=== PATIENT | female | born 1965 | race Caucasian/White ===

== ENCOUNTER 2018-01-17 16:35 | Emergency (ER) | payer SELFPAY ==
[~2018-01-17] VITALS: Ht 175.3 cm; Wt 72.6 kg
[~2018-01-17 16:35] MED LIST: CLONAZEPAM0.5 M1 PO; HYDROGESIC 5-51 EACH PO; LANTUS100 UNITS/; Z.0.LANTUS 3ML100 UN
--- OUTSIDE RECORDS SUMMARY | 2018-01-17 16:38 | XMS REPORT | Clinical Summary ---
Author Author [facility] Organization [facility] Address Unknown Phone Unavailable Care Team Providers Care Engineering Writer Name Role Phone Luc Redd MD PCP Allergies Active Allergy Reactions Severity Noted Date Comments Lisinopril 01/22/2013 Modafinil 01/22/2013 Current Medications Prescription Sig. Disp. Refills Start End Date Status Date ferrous sulfate 325 mg Take 1 tablet by mouth 2 60 tablet 0 06/14/19 Active (65 mg iron) times daily. 16 tabletIndications: Dysfunctional uterine bleeding ferrous sulfate 325 mg Take 1 tablet by mouth 2 60 tablet 2 07/22/19 Active (65 mg iron) times daily. 16 tabletIndications: S/P hysterectomy ibuprofen (MOTRIN) 600 mg Take 1 tablet by mouth 30 tablet 1 07/22/19 Active tabletIndications: S/P every 6 hours as needed 16 hysterectomy for Pain. INSULIN SYRINGE 1mL Use to inject medication 30 Each 11 12/03/19 Active 30GX5/16" daily. Use a new syringe 16 syringe-needleIndications each time. : Type 2 diabetes mellitus with hyperglycemia, unspecified termination clerk insulin use status traMADol (ULTRAM) 50 mg Take 1 tablet by mouth 30 tablet 1 02/03/20 Active tabletIndications: every 6 hours as needed 16 Chronic hepatitis C for Pain. without hepatic coma, Sciatica of right side hydroCHLOROthiazide Take 2 tablets by mouth 180 tablet 1 11/16/19 Active (HYDRODIURIL) 25 mg daily. 17 tabletIndications: Essential hypertension traMADol (ULTRAM) 50 mg Take 1 tablet by mouth 30 tablet 0 11/16/19 Active tabletIndications: every 6 hours as needed 17 Myalgia for Pain. metoprolol tartrate Take 1 tablet by mouth 2 60 tablet 3 11/18/19 Active (LOPRESSOR) 50 mg tablet times daily. 17 insulin detemir (LEVEMIR) Inject 55 Units under the 50 mL 1 01/26/20 Active 100 unit/mL skin daily. 17 injectionIndications: Type 2 diabetes mellitus without complication, with long-term current use of insulin traZODone (DESYREL) 100 Take 1 tablet by mouth at 30 tablet 2 01/04/20 Active mg tabletIndications: bedtime nightly. 18 Insomnia, unspecified type clonazePAM (KLONOPIN) 0.5 Take 1 tablet by mouth 30 tablet 2 01/04/20 Active mg tabletIndications: daily as needed for 18 Anxiety Anxiety. lithium carbonate Take 1 capsule by mouth 2 60 capsule 2 01/04/20 Active (ESKALITH) 600 mg times daily (with meals). 18 capsuleIndications: Bipolar 2 disorder, Anxiety insulin detemir (LEVEMIR) Inject 55 Units under the 50 mL 0 10/26/19 01/24/20 Discontin 100 unit/mL skin daily. 17 17 ued injectionIndications: Type 2 diabetes mellitus without complication, with long-term current use of insulin traZODone (DESYREL) 100 Take 1 tablet by mouth at 30 tablet 3 12/03/19 02/23/20 Discontin mg tabletIndications: bedtime nightly. 17 17 ued Bipolar 2 disorder lithium carbonate Take 1 capsule by mouth 2 60 capsule 2 12/29/19 07/27/19 Discontin (ESKALITH) 600 mg times daily (with meals). 17 18 ued capsuleIndications: Bipolar 2 disorder, Anxiety clonazePAM (KLONOPIN) 0.5 Take 1 tablet by mouth 30 tablet 2 12/29/19 07/27/19 Discontin mg tabletIndications: daily as needed for 17 18 ued Anxiety Anxiety. insulin detemir (LEVEMIR) Inject 55 Units under the 50 mL 1 01/25/20 01/26/20 Discontin 100 unit/mL skin daily. 17 17 ued injectionIndications: Type 2 diabetes mellitus without complication, with long-term current use of insulin gabapentin (NEURONTIN) Take 1 capsule by mouth 30 capsule 0 01/26/20 10/19/19 Discontin 100 mg capsule at bedtime nightly For 17 18 ued hot flashes and mood changes until you see Dr. Troy.. tropicamide (MYDRIACYL) Instill 1 Drop in each 15 mL 0 01/26/20 01/26/20 0.5 % ophthalmic solution eye once as needed for up 17 17 to 1 dose (for poor retina scan image). traZODone (DESYREL) 100 Take 1 tablet by mouth at 30 tablet 2 02/23/20 02/23/20 Discontin mg tabletIndications: bedtime nightly. 17 17 ued Insomnia, unspecified type QUEtiapine (SEROQUEL) 50 Take 1/2 or a whole at 30 tablet 1 02/23/20 02/23/20 Discontin mg tabletIndications: bedtime.. 17 17 ued Bipolar 2 disorder, Anxiety, Insomnia, unspecified type traZODone (DESYREL) 100 Take 1 tablet by mouth at 30 tablet 2 02/23/20 06/02/19 Discontin mg tabletIndications: bedtime nightly. 17 18 ued Insomnia, unspecified type QUEtiapine (SEROQUEL) 50 Take 1/2 or a whole at 30 tablet 1 02/23/20 07/27/19 Discontin mg tabletIndications: bedtime.. 17 18 ued Bipolar 2 disorder, Anxiety, Insomnia, unspecified type traZODone (DESYREL) 100 Take 1 tablet by mouth at 30 tablet 2 06/03/19 07/27/19 Discontin mg tabletIndications: bedtime nightly. 18 18 ued Insomnia, unspecified type traZODone (DESYREL) 100 Take 1 tablet by mouth at 30 tablet 2 07/27/19 10/19/19 Discontin mg tabletIndications: bedtime nightly. 18 18 ued Insomnia, unspecified type clonazePAM (KLONOPIN) 0.5 Take 1 tablet by mouth 30 tablet 2 07/27/19 10/19/19 Discontin mg tabletIndications: daily as needed for 18 18 ued Anxiety Anxiety. lithium carbonate Take 1 capsule by mouth 2 60 capsule 2 07/27/19 10/19/19 Discontin (ESKALITH) 600 mg times daily (with meals). 18 18 ued capsuleIndications: Bipolar 2 disorder, Anxiety traZODone (DESYREL) 100 Take 1 tablet by mouth at 30 tablet 2 10/19/19 01/04/20 Discontin mg tabletIndications: bedtime nightly. 18 18 ued Insomnia, unspecified type clonazePAM (KLONOPIN) 0.5 Take 1 tablet by mouth 30 tablet 2 10/19/19 01/04/20 Discontin mg tabletIndications: daily as needed for 18 18 ued Anxiety Anxiety. lithium carbonate Take 1 capsule by mouth 2 60 capsule 2 10/19/19 01/04/20 Discontin (ESKALITH) 600 mg times daily (with meals). 18 18 ued capsuleIndications: Bipolar 2 disorder, Anxiety Active Problems Problem Noted Date Perimenopausal - hot flashes and mood swings 01/25/2017 Larned use 01/25/2017 S/P hysterectomy 07/21/2015 Epigastric pain 07/06/2015 Vagina bleeding 07/05/2015 Dysfunctional uterine bleeding 06/13/2015 Abnormal ultrasound of kidney- repeat CT- Punctate bilateral nonobstructing 01/02/2015 renal calculi.- has appt with pcp jan 2015-letter 2 sent Elevated LFTs 12/03/2014 Elevated TSH 12/03/2014 Hepatitis C virus infection-Hepatitis C- treated 2002-06; 2007-11 - at 12/03/2014 [facility] ; had hep A and B vaccines ; low platelets ; elevated AFP DM (diabetes mellitus), type 2, uncontrolled 12/03/2014 Hepatitis C- treated 2002-06; 2007-11 - at [facility] ; had hep A and B vaccines 11/19/2014 ; low platelets ; History of alcohol abuse- in remission since 201211/19/2014 Anxiety state, unspecified 09/04/2014 Bipolar 2 disorder 11/06/2013 DM (diabetes mellitus); not on lalo - allergy ?; 01/23/2013 Depression 01/22/2013 Anxiety 01/22/2013 Uterine leiomyoma Hypertension Encounters Date Type Specialty Care Team Description 01/03/2018 Office Visit Psychiatry Sophy Troy MD Insomnia, unspecified type; Anxiety; Bipolar 2 disorder 10/18/2017 Office Visit Psychiatry Sophy Troy MD Insomnia, unspecified type; Anxiety; Bipolar 2 disorder 07/26/2017 Office Visit Psychiatry Luc Redd MD Insomnia, unspecified Sophy Troy MD type; Anxiety; Bipolar 2 disorder 06/13/2017 Pharmacy Visit 06/13/2017 Pharmacy Visit 06/02/2017 Pharmacy Visit 06/01/2017 Refill Family Practice Mary Cuadra RN Insomnia, unspecified type 02/22/2017 Office Visit Psychiatry Sophy Troy MD Insomnia, unspecified type (Primary Dx); Bipolar 2 disorder; Anxiety 02/22/2017 Pharmacy Visit 01/30/2017 Pharmacy Visit 01/30/2017 Pharmacy Visit 01/26/2017 Pharmacy Visit 01/25/2017 Office Visit Family Practice Nicole La NP 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 Hannon MD chronic hepatitis C infection (Primary Dx); Screen for colon cancer; Type 2 diabetes mellitus without complication, with long-term current use of insulin; Encounter for screening mammogram for malignant neoplasm of breast; Cramping affecting , antepartum; Leg cramp 01/25/2017 Pharmacy Visit 01/24/2017 Pharmacy Visit 01/23/2017 Refill Family Practice Luc Redd MD Type 2 diabetes mellitus without complication, with long-term current use of insulin after 01/16/2017 Immunizations Name Dates Previously Given Next Due PNEUMOCOCCAL 23-VALPS 11/15/2016 (Deferred: Patient Refused) VACCINE 25 MCG/0.5 ML INJECTION Tdap Tetanus, diphtheria, 11/15/2016 (Deferred: Patient Refused) acellular pertussis Vaccine Social History Tobacco Use Types Packs/Day Years Used Date Current Every Day Smoker Cigarettes 0.25 20 Smokeless Tobacco: Never Used Tobacco Cessation: Ready to Quit: No; Counseling Given: Yes Alcohol Use Drinks/Week oz/Week Comments No history of alcohol abuse Sex Assigned at Date Recorded Not on file Last Filed Vital Signs Vital Sign Reading Time Taken Blood Pressure 134/81 01/03/2018 3:05 PM CDT Pulse 62 01/03/2018 3:05 PM CDT Temperature 36.8 C (98.2 F) 01/03/2018 3:05 PM CDT Respiratory Rate 18 01/03/2018 3:05 PM CDT Oxygen Saturation - - Inhaled Oxygen - - Concentration Weight 76.2 kg (168 lb) 01/03/2018 3:05 PM CDT Height 170.2 cm (5' 7") 01/03/2018 3:05 PM CDT Body Mass Index 26.31 01/03/2018 3:05 PM CDT Plan of Treatment Date Type Specialty Care Team Description 03/07/2018 Office Visit Psychiatry Sophy Troy MD [facility] [address] [place] [address] Health Maintenance Due Date Last Done Comments Colorectal Cancer Scrn 02/19/2016 Annual (FIT/FOBT) Age 50 to 75 DM Retinal Exam (Yearly) 10/16/2016 10/17/2015 (Previously completed - External), 10/25/2014 Breast Cancer Scrn 02/02/2017 02/03/2016, 12/03/2014, 12/03/2014 (Yearly) DM Foot Exam (Yearly) 11/15/2017 11/15/2016, 06/15/2016, 11/19/2014, Additional history exists DM HGBA1C (Yearly) 12/12/2017 12/12/2016, 06/15/2016, 11/17/2015, Additional history exists DM Microalbumin Urine 12/12/2017 12/12/2016, 11/17/2015, 07/05/2015, Scrn (Yearly) Additional history exists Goals Patient Goal Type Goal Recent Progress Patient-Stat Author ed? Lifestyle Eat Healthy Molly Alfonso Results Not on fileafter 01/16/2017
--- OUTSIDE RECORDS SUMMARY | 2018-01-17 16:39 | XMS REPORT | Summary of Care ---
Author Author [facility] Organization [facility] Address Unknown Phone Unavailable Encounter [facility](HENRY) [id number] Date(s): 06/04/15 - 06/04/15 [facility] [id number] [place] [address]- Discharge Diagnosis: Abnormal uterine and vaginal bleeding, unspecified Discharge Disposition: Home Attending Physician: Abbe Sheth MD Vital Signs 1 2 3 Most recent to oldest [Reference Range]: 167.64 cm (06/04/15 7:02 AM) Height 97.6 DegF (06/04/15 2:55 PM) 98.8 DegF (06/04/15 7:02 AM) Temperature Oral [96.4-99.1 DegF] 126/73 mmHg (06/04/15 2:55 PM) 118/71 mmHg (06/04/15 12:58 PM) 150/80 mmHg *HI* (06/04/15 7:02 AM) Blood Pressure [90-140/60-90 mmHg] 20 BRMIN (06/04/15 2:55 PM) 20 BRMIN (06/04/15 12:58 PM) 16 BRMIN (06/04/15 7:02 AM) Respiratory Rate [14-20 BRMIN] 67 bpm (06/04/15 2:55 PM) 75 bpm (06/04/15 12:58 PM) 74 bpm (06/04/15 7:02 AM) Peripheral Pulse Rate [60-100 bpm] 76.818 kg (06/04/15 7:02 AM) Weight 27.33 m2 (06/04/15 7:02 AM) Body Mass Index Problem List Condition Effective Dates Status Health Status Informant Acute hepatitis Resolved C(Confirmed) DM (diabetes Resolved mellitus)(Confirmed) Suicidal(Confirmed) Resolved Allergies, Adverse Reactions, Alerts Substance Reaction Severity Status lisinopril1 Active Provigil Active 1swelling of both lower extremities Medications Dilaudid 0.5 mg, Route: IV, ONCE, Dosing Weight 76.818, kg, Start date: 06/04/15 11:55:00 , Stop date: 06/04/15 11:55:00 Start Date: 06/04/15 Stop Date: 06/04/15 Status: Completed morphine Sulfate 4 mg, 2 mL, Route: IVP, Drug form: INJ, ONCE, Dosing Weight 76.818, kg, Priority : STAT, Start date: 06/04/15 8:12:00, Stop date: 06/04/15 8:12:00 Notes: (Same as:MORPhine Sulfate) Start Date: 06/04/15 Stop Date: 06/04/15 Status: Completed NS (Bolus) IV 1,000 mL, 1,000 ml/hr, Infuse Over: 1 hr, Route: IV, ONCE, Priority: STAT, Dosin g Weight 76.818 kg, Start date: 06/04/15 12:49:00, Duration: 1 doses or times, S top date: 06/04/15 12:49:00 Start Date: 06/04/15 Stop Date: 06/04/15 Status: Completed Ultram 50 mg oral tablet 50 mg=1 tab, PO, Q4H, PRN pain, X 5 day, # 30 tab, 0 Refill(s) Start Date: 06/04/15 Stop Date: 06/09/15 Status: Ordered Zofran ODT 4 mg oral tablet, disintegrating 4 mg=1 tab, PO, BID, PRN Nausea and Vomiting, Dissolve tab under tongue, X 3 day , # 10 tab, 0 Refill(s) Start Date: 06/04/15 Stop Date: 06/07/15 Status: Ordered Results ELECTROLYTES Most recent to 1 oldest [Reference Range]: Sodium Lvl [135-145 138 mEq/L mEq/L] (06/04/15 7:44 AM) Potassium Lvl 3.6 mEq/L [3.5-5.1 mEq/L] (06/04/15 7:44 AM) Chloride Lvl [95-109 104 mEq/L mEq/L] (06/04/15 7:44 AM) CO2 [24-32 mEq/L] 26 mEq/L (06/04/15 7:44 AM) AGAP [10.0-20.0 11.6 mEq/L mEq/L] (06/04/15 7:44 AM) CHEM PANEL Most recent to 1 oldest [Reference Range]: Creatinine Lvl 0.78 mg/dL [0.50-1.40 mg/dL] (06/04/15 7:44 AM) eGFR 90 mL/min/1.73m2 1 *NA* (06/04/15 7:44 AM) BUN [7-22 mg/dL] 12 mg/dL (06/04/15 7:44 AM) B/C Ratio [6-25] 15 (06/04/15 7:44 AM) Glucose Lvl [70-99 124 mg/dL mg/dL] *HI* (06/04/15 7:44 AM) Total Protein 7.4 g/dL [6.4-8.4 g/dL] (06/04/15 7:44 AM) Albumin Lvl [3.5-5.0 3.3 g/dL g/dL] *LOW* (06/04/15 7:44 AM) Globulin [2.0-4.0 4.1 g/dL g/dL] *HI* (06/04/15 7:44 AM) A/G Ratio [0.7-1.6] 0.8 (06/04/15 7:44 AM) Calcium Lvl 7.9 mg/dL [8.5-10.5 mg/dL] *LOW* (06/04/15 7:44 AM) ALT [0-65 unit/L] 101 unit/L *HI* (06/04/15 7:44 AM) AST [0-37 unit/L] 91 unit/L *HI* (06/04/15 7:44 AM) Alk Phos [39-136 67 unit/L unit/L] (06/04/15 7:44 AM) Bili Total [0.2-1.3 0.3 mg/dL mg/dL] (06/04/15 7:44 AM) 1Result Comment: The eGFR is calculated using the CKD-EPI formula. In most young, healthy individuals the eGFR will be >90 mL/min/1.73m2. The eGFR declines with age. An eGFR of 60-89 may be normal in some populations, particularly the elderly, for whom the CKD-EPI formula has not been extensively validated. Use of the eGFR is not recommended in the following populations: Individuals with unstable creatinine concentrations, including patients and those with serious co-morbid conditions. Patients with extremes in muscle mass or diet. The data above are obtained from the National Kidney Disease Education Program ( NKDEP) which additionally recommends that when the eGFR is used in patients with extremes of body mass index for purposes of drug dosing, the eGFR should be mul tiplied by the estimated BMI. ENDOCRINOLOGY Most recent to 1 oldest [Reference Range]: hCG Tot <1 mIU/mL *NA* (06/04/15 7:44 AM) URINE AND STOOL Most recent to 1 oldest [Reference Range]: UA Turbidity [Clear] Cloudy *ABN* (06/04/15 8:44 AM) UA Color [Yellow] Red *ABN* (06/04/15 8:44 AM) UA pH [5.0-8.0] 6.0 (06/04/15 8:44 AM) UA Spec Grav 1.020 [<=1.030] (06/04/15 8:44 AM) UA Glucose Negative [Negative] (06/04/15 8:44 AM) UA Blood [Negative] Large *ABN* (06/04/15 8:44 AM) UA Ketones Negative [Negative] *NA* (06/04/15 8:44 AM) UA Protein [Negative 100 mg/dL mg/dL] *ABN* (06/04/15 8:44 AM) UA Urobilinogen 1.0 EU/dL [0.1-1.0 EU/dL] (06/04/15 8:44 AM) UA Bili [Negative] Small *ABN* (06/04/15 8:44 AM) UA Leuk Est Negative [Negative] (06/04/15 8:44 AM) UA Nitrite Negative [Negative] (06/04/15 8:44 AM) UA WBC [0-5 /HPF] 0-2 /HPF (06/04/15 8:44 AM) UA RBC [0-2 /HPF] >100 /HPF *ABN* (06/04/15 8:44 AM) UA Bacteria [None Occasional /HPF Seen /HPF] (06/04/15 8:44 AM) UA Sq Epi [Few /LPF] Occasional /LPF (06/04/15 8:44 AM) HEMATOLOGY Most recent to 1 oldest [Reference Range]: WBC [3.7-10.4 K/CMM] 4.9 K/CMM (06/04/15 7:44 AM) RBC [4.20-5.40 3.73 M/CMM M/CMM] *LOW* (06/04/15 7:44 AM) Hgb [12.0-16.0 g/dL] 10.8 g/dL *LOW* (06/04/15 7:44 AM) Hct [36.0-48.0 %] 32.5 % *LOW* (06/04/15 7:44 AM) MCV [80.0-98.0 fL] 86.9 fL (06/04/15 7:44 AM) MCH [27.0-31.0 pg] 28.8 pg (06/04/15 7:44 AM) MCHC [32.0-36.0 33.1 g/dL g/dL] (06/04/15 7:44 AM) RDW [11.5-14.5 %] 14.1 % (06/04/15 7:44 AM) Platelet [133-450 96 K/CMM K/CMM] *LOW* (06/04/15 7:44 AM) MPV [7.4-10.4 fL] 7.9 fL (06/04/15 7:44 AM) Segs [45.0-75.0 %] 55.4 % (06/04/15 7:44 AM) Lymphocytes 33.1 % [20.0-40.0 %] (06/04/15 7:44 AM) Monocytes [2.0-12.0 8.6 % %] (06/04/15 7:44 AM) Eosinophils [0.0-4.0 2.0 % %] (06/04/15 7:44 AM) Basophils [0.0-1.0 0.9 % %] (06/04/15 7:44 AM) Segs-Bands # 2.7 K/CMM [1.5-8.1 K/CMM] (06/04/15 7:44 AM) Lymphocytes # 1.6 K/CMM [1.0-5.5 K/CMM] (06/04/15 7:44 AM) Monocytes # [0.0-0.8 0.4 K/CMM K/CMM] (06/04/15 7:44 AM) Eosinophils # 0.1 K/CMM [0.0-0.5 K/CMM] (06/04/15 7:44 AM) PT [12.0-14.7 14.2 seconds seconds] (06/04/15 7:44 AM) INR [0.85-1.17] 1.07 (06/04/15 7:44 AM) PTT [22.9-35.8 27.4 seconds seconds] (06/04/15 7:44 AM) Immunizations No data available for this section Procedures No data available for this section Social History Social History Type Response Smoking Status Current every day smoker; Type: Cigarettes; Exposure to Tobacco Smoke None; Cigarette Smoking Last 365 Days Yes; Reg Smoking Cessation Counseling No Assessment and Plan No data available for this section
--- OUTSIDE RECORDS SUMMARY | 2018-01-17 16:39 | XMS REPORT | Clinical Summary ---
Author Author [facility] Organization [facility] Address Unknown Phone Unavailable Care Team Providers Care Interior Specialist Name Role Phone Luc Redd MD PCP [...] Type 2 diabetes mellitus with hyperglycemia, unspecified land conservation specialist insulin use status traMADol (ULTRAM) 50 mg [...] (LOPRESSOR) 50 mg tablet times daily. 17 gabapentin (NEURONTIN) Take 1 capsule by mouth 30 capsule 0 01/26/20 Active 100 mg capsule at bedtime nightly For 17 hot flashes and mood changes until you see Dr. Troy.. insulin detemir (LEVEMIR) Inject 55 Units under the 50 mL 1 01/26/20 Active 100 unit/mL skin daily. 17 injectionIndications: Type 2 diabetes mellitus without complication, with long-term current use of insulin traZODone (DESYREL) 100 Take 1 tablet by mouth at 30 tablet 2 07/27/19 Active mg tabletIndications: bedtime nightly. 18 Insomnia, unspecified type clonazePAM (KLONOPIN) 0.5 Take 1 tablet by mouth 30 tablet 2 07/27/19 Active mg tabletIndications: daily as needed for 18 Anxiety Anxiety. lithium carbonate Take 1 capsule by mouth 2 60 capsule 2 07/27/19 Active (ESKALITH) 600 mg times daily (with meals). 18 capsuleIndications: Bipolar 2 disorder, Anxiety insulin detemir (LEVEMIR) Inject 55 Units under the 50 mL 2 11/17/19 10/25/19 Discontin 100 unit/mL skin daily. 16 17 ued injectionIndications: Type 2 diabetes mellitus without complication, with long-term current use of insulin atenolol (TENORMIN) 50 mg Take 1 tablet by mouth 2 180 tablet 1 06/16/19 11/06/19 Discontin tabletIndications: times daily. 17 17 ued Essential hypertension hydroCHLOROthiazide Take 2 tablets by mouth 180 tablet 1 06/16/19 11/16/19 Discontin (HYDRODIURIL) 25 mg daily. 17 17 ued tabletIndications: Essential hypertension insulin REGULAR (NOVOLIN Use for sliding scale 150 20 mL 0 08/02/19 11/02/19 R, HUMULIN R) 100 unit/mL to 200=2 units under the 17 17 injectionIndications: skin; 201 to 250=4 units Type 2 diabetes mellitus and 251 - 300=6 units 301 without complication, - 350=8 units three times with long-term current a day as needed use of insulin clonazePAM (KLONOPIN) 0.5 Take 1 tablet by mouth 30 tablet 2 08/17/19 10/27/19 Discontin mg tabletIndications: daily as needed for 17 17 ued Anxiety Anxiety. traZODone (DESYREL) 100 Take 1 tablet by mouth at 30 tablet 2 08/17/19 10/27/19 Discontin mg tabletIndications: bedtime nightly. 17 17 ued Bipolar 2 disorder lithium carbonate Take 1 capsule by mouth 2 60 capsule 2 08/17/19 10/27/19 Discontin (ESKALITH) 600 mg times daily (with meals). 17 17 ued capsuleIndications: Bipolar 2 disorder, Anxiety insulin detemir (LEVEMIR) Inject 55 Units under the 50 mL 0 10/26/19 01/24/20 Discontin 100 unit/mL skin daily. 17 17 ued injectionIndications: Type 2 diabetes mellitus without complication, with long-term current use of insulin traZODone (DESYREL) 100 Take 1 tablet by mouth at 30 tablet 2 10/27/19 12/01/19 Discontin mg tabletIndications: bedtime nightly. 17 17 ued Bipolar 2 disorder lithium carbonate Take 1 capsule by mouth 2 60 capsule 2 10/27/19 12/29/19 Discontin (ESKALITH) 600 mg times daily (with meals). 17 17 ued capsuleIndications: Bipolar 2 disorder, Anxiety clonazePAM (KLONOPIN) 0.5 Take 1 tablet by mouth 30 tablet 2 10/27/19 12/29/19 Discontin mg tabletIndications: daily as needed for 17 17 ued Anxiety Anxiety. atenolol (TENORMIN) 50 mg TAKE ONE TABLET BY MOUTH 180 tablet 1 11/09/19 11/16/19 Discontin tabletIndications: TWICE DAILY 17 17 ued Essential hypertension tropicamide (MYDRIACYL) Instill 1 Drop in each 15 mL 0 11/16/19 11/16/19 0.5 % ophthalmic eye once as needed for up 17 17 solutionIndications: to 1 dose (for poor Uncontrolled type 2 retina scan image). diabetes mellitus with complication, with long-term current use of insulin atenolol (TENORMIN) 50 mg Take 1 tablet by mouth 2 180 tablet 1 11/16/19 11/18/19 Discontin tabletIndications: times daily. 17 17 ued Essential hypertension traZODone (DESYREL) 100 Take 1 tablet by [...] complication, with long-term current use of insulin tropicamide (MYDRIACYL) Instill 1 Drop in each [...] nightly. 18 18 ued Insomnia, unspecified type Active Problems Problem Noted Date Perimenopausal - hot flashes and mood swings 01/25/2017 [place] use 01/25/2017 S/P hysterectomy 07/21/2015 Epigastric pain 07/06/2015 Vagina bleeding 07/05/2015 Dysfunctional uterine bleeding 06/13/2015 Abnormal ultrasound of kidney- repeat CT- Punctate bilateral nonobstructing 01/02/2015 renal calculi.- has appt with pcp jan 2015-letter 2 sent Elevated LFTs 12/03/2014 Elevated TSH 12/03/2014 Hepatitis C virus infection-Hepatitis C- treated 2002-; 2007-11 - at 12/03/2014 [facility] ; had hep A and B vaccines ; low platelets ; elevated AFP DM (diabetes mellitus), type 2, uncontrolled 12/03/2014 Hepatitis C- treated 2002-; 2007-11 - at [facility] ; had hep A and B vaccines 11/19/2014 ; low platelets ; History of alcohol abuse- in remission since 201211/19/2014 Anxiety state, unspecified 09/04/2014 Bipolar 2 disorder 11/06/2013 DM (diabetes mellitus); not on lalo - allergy ?; 01/23/2013 Depression 01/22/2013 Anxiety 01/22/2013 Uterine leiomyoma Hypertension Encounters Date Type Specialty Care Team Description 10/18/2017 Office Visit Psychiatry Sophy Tory MD Arrived 07/26/2017 Office Visit Psychiatry Luc Redd III, MD Insomnia, unspecified Sophy Troy MD type; Anxiety; Bipolar 2 disorder 06/13/2017 Pharmacy Visit 06/13/2017 Pharmacy Visit 06/02/2017 Pharmacy Visit 06/01/2017 Refill [facility] Mary Cuadra RN Insomnia, unspecified type [...] Visit 01/23/2017 Refill Family Practice Luc Redd III, MD Type 2 diabetes mellitus without complication, with long-term current use of insulin 12/29/2016 Telephone [facility] Mary Cuadra RN Medication Follow Up 12/29/2016 Telephone [facility] Mary Cuadra RN Medication Follow Up 12/28/2016 Office Visit Psychiatry Sophy Troy MD Bipolar 2 disorder; Anxiety 12/01/2016 Pharmacy Visit 11/30/2016 Refill [facility] Leonarda Kessler LVN Bipolar 2 disorder 11/30/2016 Pharmacy Visit 11/16/2016 Orders Only [facility] Luc Redd III, MD Essential hypertension 11/15/2016 Office Visit [facility] Nicole La NP Uncontrolled type 2 diabetes mellitus with complication, with long-term current use of insulin (Primary Dx); Screen for colon cancer; Need for yrytrokkdf-yxhqyhf-blvmqk sis (Tdap) vaccine; Need for pneumococcal vaccination; Wears glasses; Myalgia; Essential hypertension 11/08/2016 Pharmacy Visit 11/05/2016 Refill [facility] Luc Redd III, MD Essential hypertension (Primary Dx) 11/03/2016 Pharmacy Visit 10/26/2016 Office Visit Psychiatry Jr Thomas MD Bipolar 2 disorder Sophy Troy MD (Primary Dx); Anxiety 10/24/2016 Refill [facility] Luc Redd III, MD Type 2 diabetes mellitus without complication, with long-term current use of insulin after 10/17/2016 Immunizations Name Dates Previously Given Next Due [...] Vital Sign Reading Time Taken Blood Pressure 116/61 10/18/2017 2:51 PM CDT Pulse 62 10/18/2017 2:51 PM CDT Temperature 36.6 C (97.9 F) 10/18/2017 2:51 PM CDT Respiratory Rate 18 10/18/2017 2:51 PM CDT Oxygen Saturation - - Inhaled Oxygen - - Concentration Weight 76.7 kg (169 lb) 10/18/2017 2:51 PM CDT Height 170.2 cm (5' 7") 10/18/2017 2:51 PM CDT Body Mass Index 26.47 10/18/2017 2:51 PM CDT Plan of Treatment Health Maintenance Due Date Last Done Comments [...] ed? Lifestyle Eat Healthy Molly Alfonso Results * VIT D, 25-HYDROXY (12/12/2016 9:05 AM) Component Value Ref Range Vit D, 25-Hydroxy 45.8 30 - 100 ng/mL Comment: Vitamin D deficiency has been defined by the [place] [employer] and Endocrine Society guideline as a level of serum 25-OH Vitamin D less than 20 ng/mL. The Endocrine Society further defines Vitamin D insufficiency as a level between 21 and 29 ng/mL and sufficiency as a level between 30 and 100 ng/mL. Specimen Performing Laboratory [facility] * MICROALBUM, URINE (12/12/2016 9:05 AM) Component Value Ref Range Microalbum, Random 1.5 0.0 - 29.0 mg/dL Creatinine, Ur 126.9 mg/dL Urine Microalbumin 11.8 0 - 29 mg/g UCR Comment: To minimize intra-individual variation, analysis of three random urine samples collected over the course of a week is recommended. Specimen Performing Laboratory [facility] * HEMOGLOBIN A1C (12/12/2016 9:05 AM) Component Value Ref Range Hemoglobin A1c 6.8 (H) 4.3 - 6.1 % Est Average Gluc 148.5 mg/dL Specimen Performing Laboratory Blood [facility] * LIPID PROFILE (12/12/2016 9:05 AM) Component Value Ref Range Cholesterol 173 <200 mg/dL Comment: REFERENCE RANGE: Desirable: <200 mg/dL Borderline: 200-240 mg/dL High Risk: >240 mg/dL Triglyceride 115 <150 mg/dL Comment: REFERENCE RANGE: Normal: <150 mg/dL Borderline High: 150-199 mg/dL High: 200-499 mg/dL Very High: >me=326 mg/dL HDL 38 (L) 40 - 60 mg/dL Comment: Increased CHD risk: <40 mg/dL Decreased CHD risk: >60 mg/dL LDL 112 mg/dL Comment: REFERENCE RANGE: Optimal: <100 mg/dL Near Optimal: 100-129 mg/dL Borderline High: 130-159 mg/dL High: 160-189 mg/dL Very High: >kk=663 mg/dL Specimen Performing Laboratory Blood [facility] * BASIC METABOLIC PANEL (12/12/2016 9:05 AM) Only the most recent of 2 results within the time period is included. Component Value Ref Range CO2 31.7 21 - 32 mmol/L Chloride 99 98 - 107 mmol/L Potassium 3.6 3.50 - 5.10 mmol/L Sodium 139 136 - 145 mmol/L Glucose 144 (H) 70 - 99 mg/dL Urea Nitrogen 16 7 - 18 mg/dL Creatinine 0.85 0.60 - 1.30 mg/dL Anion Gap 8.3 Calcium 9.3 8.50 - 10.20 mg/dL GFR, Estimated >60 mL/min/1.73 m2 GFR, Estim, Afr-Am >60 mL/min/1.73 m2 Specimen Performing Laboratory Blood [facility] * DIABETIC FOOT EXAM (11/15/2016 7:43 PM) Nicole Ham NP 11/15/20167:43 PM Diabetic Foot Exam was performed at 11/15/2016 7:41 PM.Right foot sensation is normal, right foot pulses are normal, right foot appearance is normal.Left foot sensation is normal,left foot pulses are normal, left foot appearance is normal. * ACTIN (SM) AB (10/26/2016 2:25 PM) Component Value Ref Range Actin Smooth Mus 19 Reference range: 0 to 19 Unit: Units (note) Negative 0 - 19 Weak positive 20 - 30 Moderate to strong positive >30 Actin Antibodies are found in 52-85% of patients with autoimmune hepatitis or chronic active hepatitis and in 22% of patients with primary biliary cirrhosis. Specimen Performing Laboratory Blood [facility] * MITOCHON (M2) AB (10/26/2016 2:25 PM) Component Value Ref Range Mitochon (M2) Ab 13.8 Reference range: 0.0 to 20.0 Unit: Units (note) Negative0.0 - 20.0 Ztdyfgnzm94.1 - 24.9 Positive >24.9 Mitochondrial (M2) Antibodies are found in 90-96% of patients with primary biliary cirrhosis. Specimen Performing Laboratory Blood [facility] * AFP, TUMOR MARKER (10/26/2016 2:24 PM) Component Value Ref Range AFP Tumor Mrk 4.0 0.0 - 8.0 ng/mL (Historical) Specimen Performing Laboratory Blood [facility] * PT/INR (10/26/2016 2:24 PM) Component Value Ref Range PT 14.3 11.8 - 15.0 Seconds INR 1.1 SUGGESTED THERAPEUTIC RANGES: INR 2.0-3.0 for MODERATE INTENSITY ANTICOAGULATION INR 2.5-3.5 for HIGH INTENSITY ANTICOAGULATION Specimen Performing Laboratory Blood [facility] * LIVER PROFILE (10/26/2016 2:24 PM) Component Value Ref Range T Protein 7.6 6.4 - 8.2 g/dL Albumin 3.9 3.4 - 5.0 g/dL T Bilirubin 0.2 0.2 - 1.0 mg/dL Alk Phos 52 45 - 117 U/L AST 26 15 - 37 U/L ALT 28 12 - 78 U/L D Bilirubin 0.1 0.0 - 0.2 mg/dL Specimen Performing Laboratory Blood [facility] * IGG (10/26/2016 2:24 PM) Component Value Ref Range IgG 1,530.0 700 - 1,600 mg/dL Specimen Performing Laboratory Blood [facility] * CBC/DIFF (10/26/2016 2:24 PM) Component Value Ref Range WBC 6.0 4.5 - 11.0 K/uL RBC 4.43 4.20 - 5.40 M/uL Hemoglobin 13.5 12.0 - 16.0 g/dL Hematocrit 39.6 37.0 - 47.0 % MCV 89 82 - 92 fL MCH 30.5 27.0 - 32.0 pg MCHC 34.1 32.0 - 36.0 g/dL RDW 41.3 36.4 - 46.3 fL Platelet 114 (L) 150 - 400 K/uL Mean Platelet Volume 11.5 9.4 - 12.4 fL Percent NRBC 0.0 Absolute NRBC 0.00 Neutrophil 52.2 34.0 - 70.0 % Lymphocyte 36.6 20.0 - 50.0 % Monocyte 8.0 5.0 - 12.0 % Eosinophil 2.5 0.7 - 5.0 % Basophil 0.5 0.1 - 1.2 % Pct Immat Gran 0.2 0.0 - 0.5 Neutrophil, Abs 3.13 1.56 - 6.13 K/uL Lymphocyte, Abs 2.19 1.18 - 3.74 K/uL Monocyte, Abs 0.48 (H) 0.24 - 0.36 K/uL Eosinophil, Abs 0.15 0.04 - 0.36 K/uL Basophil, Abs 0.03 0.01 - 0.08 K/uL Absol Immat Gran 0.01 0.00 - 0.03 K/uL Specimen Performing Laboratory Blood [facility] * JULIAN (10/26/2016 2:24 PM) Component Value Ref Range JULIAN Screen Negative NEG Specimen Performing Laboratory Blood [facility] after 10/17/2016
--- OUTSIDE RECORDS SUMMARY | 2018-01-17 16:39 | XMS REPORT | Continuity of Care Document ---
Author Author [facility] [employer] [facility] [place] Interface Address Unknown Phone Unavailable Problems Problem Status Onset Date Classification Date Reported Comments Source Perimenopausal - hot flashes and mood swings Active 01/25/2017 Problem 01/03/2018 [facility] [place] use Active 01/25/2017 Problem 01/03/2018 [facility] S/P hysterectomy Active 07/21/2015 Problem 01/03/2018 [facility] Epigastric pain Active 07/06/2015 Problem 01/03/2018 [facility] Vagina bleeding Active 07/05/2015 Problem 01/03/2018 [facility] Dysfunctional uterine bleeding Active 06/13/2015 Problem 01/03/2018 [facility] Discharge Diagnosis: Abnormal uterine and vaginal bleeding, unspecified 06/04/2015 06/07/2015 [facility] VAGINAL BLEEDING Active 03/04/2015 [facility] LOW IRON/ BLOOD Active 03/04/2015 [facility] Abnormal ultrasound of kidney- repeat CT- Punctate bilateral nonobstructing renal calculi.- has appt with pcp jan 2015-letter 2 sent Active 01/02/2015 Problem 01/03/2018 [facility] Elevated LFTs Active 12/03/2014 Problem 01/03/2018 [facility] Elevated TSH Active 12/03/2014 Problem 01/03/2018 [facility] Hepatitis C virus infection-Hepatitis C- treated 2002-; 2007-11 - at [facility] ; had hep A and B vaccines ; low platelets ; elevated AFP Active 12/03/2014 Problem 01/03/2018 [facility] DM , type 2, uncontrolled Active 12/03/2014 Problem 01/03/2018 [facility] Hepatitis C- treated 2002-2007-11 - at [facility] ; had hep A and B vaccines ; low platelets ; Active 11/19/2014 Problem 01/03/2018 [facility] History of alcohol abuse- in remission since 2012 Active 11/19/2014 Problem 01/03/2018 [facility] Anxiety state, unspecified Active 09/04/2014 Problem 01/03/2018 [facility] Bipolar 2 disorder Active 11/06/2013 Problem 01/03/2018 [facility] DM ; not on lalo - allergy ?; Active 01/23/2013 Problem 01/03/2018 [facility] Depression Active 01/22/2013 Problem 01/03/2018 [facility] Anxiety Active 01/22/2013 Problem 01/03/2018 [facility] Acute hepatitis C Resolved Problem 06/07/2015 [place] DM (<span ID="[id number]">Confirmed</span>) Resolved Problem 06/07/2015 [place] Suicidal Resolved Problem 06/07/2015 [facility] Uterine leiomyoma Active Problem 01/03/2018 [facility] Hypertension Active Problem 01/03/2018 [facility] ABNORMAL UTERINE AND VAGINAL BLEEDING, U Active [facility] Medications Medication Details Route Status Patient Instructions Ordering Provider Order Date Source Trazodone 100 Mg Tablet Take 1 tablet by mouth at bedtime nightly. Oral Active 10/18/2017 [facility] Clonazepam 0.5 Mg Tablet Klonopin 0.5 Mg Tablet Take 1 tablet by mouth daily as needed for Anxiety. Oral Active 10/18/2017 [facility] [place] Carbonate 600 Mg Capsule Take 1 capsule by mouth 2 times daily (with meals). Oral Active 10/18/2017 [facility] Trazodone 100 Mg Tablet Take 1 tablet by mouth at bedtime nightly. Oral No Longer Active 07/26/2017 [facility] Clonazepam 0.5 Mg Tablet Klonopin 0.5 Mg Tablet Take 1 tablet by mouth daily as needed for Anxiety. Oral No Longer Active 07/26/2017 [facility] [place] Carbonate 600 Mg Capsule Take 1 capsule by mouth 2 times daily (with meals). Oral No Longer Active 07/26/2017 [facility] Trazodone 100 Mg Tablet Take 1 tablet by mouth at bedtime nightly. Oral No Longer Active 06/02/2017 [facility] Trazodone 100 Mg Tablet Take 1 tablet by mouth at bedtime nightly. Oral Inactive 02/22/2017 [facility] Quetiapine 50 Mg Tablet Seroquel 50 Mg Tablet Take 1/2 or a whole at bedtime.. Inactive 02/22/2017 [facility] Gabapentin 100 Mg Capsule Neurontin 100 Mg Capsule Take 1 capsule by mouth at bedtime nightly For hot flashes and mood changes until you see Dr. Troy.. Oral No Longer Active 01/25/2017 [facility] Levemir U-100 Insulin 100 Unit/Ml Subcutaneous Solution Inject 55 Units under the skin daily. Subcutaneous Active 01/25/2017 [facility] Tropicamide 0.5 % Eye Drops Instill 1 Drop in each eye once as needed for up to 1 dose (for poor retina scan image). No Longer Active 01/25/2017 [facility] Levemir U-100 Insulin 100 Unit/Ml Subcutaneous Solution Inject 55 Units under the skin daily. Subcutaneous No Longer Active 01/24/2017 [facility] [place] Carbonate 600 Mg Capsule Take 1 capsule by mouth 2 times daily (with meals). Oral No Longer Active 12/28/2016 [facility] Clonazepam 0.5 Mg Tablet Klonopin 0.5 Mg Tablet Take 1 tablet by mouth daily as needed for Anxiety. Oral No Longer Active 12/28/2016 [facility] Trazodone 100 Mg Tablet Take 1 tablet by mouth at bedtime nightly. Oral No Longer Active 12/02/2016 [facility] Metoprolol Tartrate 50 Mg Tablet Lopressor 50 Mg Tablet Take 1 tablet by mouth 2 times daily. Oral Active 11/17/2016 [facility] Tropicamide 0.5 % Eye Drops Instill 1 Drop in each eye once as needed for up to 1 dose (for poor retina scan image). No Longer Active 11/15/2016 [facility] Hydrochlorothiazide 25 Mg Tablet Take 2 tablets by mouth daily. Oral Active 11/15/2016 [facility] Atenolol 50 Mg Tablet Take 1 tablet by mouth 2 times daily. Oral No Longer Active 11/15/2016 [facility] Tramadol 50 Mg Tablet Ultram 50 Mg Tablet Take 1 tablet by mouth every 6 hours as needed for Pain. Oral Active 11/15/2016 [facility] Atenolol 50 Mg Tablet TAKE ONE TABLET BY MOUTH TWICE DAILY No Longer Active 11/08/2016 [facility] Trazodone 100 Mg Tablet Take 1 tablet by mouth at bedtime nightly. Oral No Longer Active 10/26/2016 [facility] [place] Carbonate 600 Mg Capsule Take 1 capsule by mouth 2 times daily (with meals). Oral No Longer Active 10/26/2016 [facility] Clonazepam 0.5 Mg Tablet Klonopin 0.5 Mg Tablet Take 1 tablet by mouth daily as needed for Anxiety. Oral No Longer Active 10/26/2016 [facility] Levemir U-100 Insulin 100 Unit/Ml Subcutaneous Solution Inject 55 Units under the skin daily. Subcutaneous No Longer Active 10/25/2016 [facility] Clonazepam 0.5 Mg Tablet Klonopin 0.5 Mg Tablet Take 1 tablet by mouth daily as needed for Anxiety. Oral No Longer Active 08/16/2016 [facility] Trazodone 100 Mg Tablet Take 1 tablet by mouth at bedtime nightly. Oral No Longer Active 08/16/2016 [facility] [place] Carbonate 600 Mg Capsule Take 1 capsule by mouth 2 times daily (with meals). Oral No Longer Active 08/16/2016 [facility] insulin REGULAR (NOVOLIN R, HUMULIN R) 100 unit/mL injection Use for sliding scale 150 to 200=2 units under the skin; 201 to 250=4 units and 251 - 300=6 units 301 - 350=8 units three times a day as needed No Longer Active 08/01/2016 [facility] Atenolol 50 Mg Tablet Take 1 tablet by mouth 2 times daily. Oral No Longer Active 06/15/2016 [facility] Hydrochlorothiazide 25 Mg Tablet Take 2 tablets by mouth daily. Oral No Longer Active 06/15/2016 [facility] Tramadol 50 Mg Tablet Ultram 50 Mg Tablet Take 1 tablet by mouth every 6 hours as needed for Pain. Oral Active 02/03/2016 [facility] Insulin Syringe-Needle U-100 1 Ml 30 Gauge X 5/16" Use to inject medication daily. Use a new syringe each time. Active 12/03/2015 [facility] Levemir U-100 Insulin 100 Unit/Ml Subcutaneous Solution Inject 55 Units under the skin daily. Subcutaneous No Longer Active 11/17/2015 [facility] Ferrous Sulfate 325 Mg (65 Mg Iron) Tablet Take 1 tablet by mouth 2 times daily. Oral Active 07/22/2015 [facility] Ibuprofen 600 Mg Tablet Take 1 tablet by mouth every 6 hours as needed for Pain. Oral Active 07/22/2015 [facility] Ferrous Sulfate 325 Mg (65 Mg Iron) Tablet Take 1 tablet by mouth 2 times daily. Oral Active 06/14/2015 [facility] Ondansetron 4 MG Disintegrating Tablet [Zofran] 4 mg=1 tab, PO, BID, PRN Nausea and Vomiting, Dissolve tab under tongue, X 3 day, # 10 tab, 0 Refill(s) Active 06/04/2015 [facility] tramadol hydrochloride 50 MG Oral Tablet [Ultram] 50 mg=1 tab, PO, Q4H, PRN pain, X 5 day, # 30 tab, 0 Refill(s) Active 06/04/2015 [facility] Sodium Chloride 0.154 MEQ/ML Injectable Solution 1,000 mL, 1,000 ml/hr, Infuse Over: 1 hr, Route: IV, ONCE, Priority: STAT, Dosing Weight 76.818 kg, Start date: 06/04/15 12:49:00, Duration: 1 doses or times, Stop date: 06/04/15 12:49:00 Inactive 06/04/2015 [facility] Dilaudid 0.5 mg, Route: IV, ONCE, Dosing Weight 76.818, kg, Start date: 06/04/15 11:55:00, Stop date: 06/04/15 11:55:00 Inactive 06/04/2015 [facility] Morphine 4 mg, 2 mL, Route: IVP, Drug form: INJ, ONCE, Dosing Weight 76.818, kg, Priority: STAT, Start date: 06/04/15 8:12:00, Stop date: 06/04/15 8:12:00Notes: (Same as:MORPhine Sulfate) Inactive 06/04/2015 [facility] Allergies, Adverse Reactions, Alerts Substance Category Reaction Severity Reaction type Status Date Reported Comments Source Lisinopril Propensity to adverse reactions to drug Active 01/22/2013 [facility] Modafinil Propensity to adverse reactions to drug Active 01/22/2013 [facility] lisinopril<sup>1</sup> Assertion Drug allergy Active swelling of both lower extremities [facility] Provigil Assertion Drug allergy Active [facility] Immunizations Immunization Date Given Site Status Last Updated Comments Source Tdap Tetanus, diphtheria, acellular pertussis Vaccine 11/15/2016 Not Given Deferred: Patient Refused [facility] PNEUMOCOCCAL 23-VALPS VACCINE 25 MCG/0.5 ML INJECTION 11/15/2016 Not Given Deferred: Patient Refused [facility] Results Order Name Results Value Reference Range Date Interpretation Comments Source BASIC METABOLIC PANEL CO2 31.7 mmol/L 21 - 32 12/12/2016 [facility] BASIC METABOLIC PANEL Chloride 99 mmol/L 98 - 107 12/12/2016 [facility] BASIC METABOLIC PANEL Potassium 3.6 mmol/L 3.5 - 5.1 12/12/2016 [facility] BASIC METABOLIC PANEL Sodium 139 mmol/L 136 - 145 12/12/2016 [facility] BASIC METABOLIC PANEL Glucose 144 mg/dL 70 - 99 12/12/2016 High [facility] BASIC METABOLIC PANEL Urea Nitrogen 16 mg/dL 7 - 18 12/12/2016 [facility] BASIC METABOLIC PANEL Creatinine 0.85 mg/dL 0.6 - 1.3 12/12/2016 [facility] BASIC METABOLIC PANEL Anion Gap 8.3 12/12/2016 [facility] BASIC METABOLIC PANEL Calcium 9.3 mg/dL 8.5 - 10.2 12/12/2016 [facility] BASIC METABOLIC PANEL GFR, Estimated >60 mL/min/1.73 m2 12/12/2016 [facility] BASIC METABOLIC PANEL GFR, Estim, Afr-Am >60 mL/min/1.73 m2 12/12/2016 [facility] BASIC METABOLIC PANEL Lab Interpretation Abnormal 12/12/2016 [facility] HEMOGLOBIN A1C Hemoglobin A1c 6.8 % 4.3 - 6.1 12/12/2016 High [facility] HEMOGLOBIN A1C Est Average Gluc 148.5 mg/dL 12/12/2016 [facility] HEMOGLOBIN A1C Lab Interpretation Abnormal 12/12/2016 [facility] LIPID PROFILE Cholesterol 173 mg/dL <200 12/12/2016 REFERENCE RANGE: Desirable: <200 mg/dL Borderline: 200-240 mg/dL High Risk: >240 mg/dL [facility] LIPID PROFILE Triglyceride 115 mg/dL <150 12/12/2016 REFERENCE RANGE: Normal: <150 mg/dL Borderline High: 150-199 mg/dL High: 200-499 mg/dL Very High: >zr=473 mg/dL [facility] LIPID PROFILE HDL 38 mg/dL 40 - 60 12/12/2016 Low Increased CHD risk: <40 mg/dL Decreased CHD risk: >60 mg/dL [facility] LIPID PROFILE LDL 112 mg/dL 12/12/2016 REFERENCE RANGE: Optimal: <100 mg/dL Near Optimal: 100-129 mg/dL Borderline High: 130-159 mg/dL High: 160-189 mg/dL Very High: >kz=237 mg/dL [facility] LIPID PROFILE Lab Interpretation Abnormal 12/12/2016 [facility] MICROALBUM, URINE Microalbum, Random 1.5 mg/dL 0 - 12/12/2016 [facility] MICROALBUM, URINE Creatinine, Ur 126.9 mg/dL 12/12/2016 [facility] MICROALBUM, URINE Urine Microalbumin 11.8 mg/g UCR 0 - 12/12/2016 To minimize intra-individual variation, analysis of three random urine samples collected over the course of a week is recommended. [facility] VIT D, 25-HYDROXY Vit D, 25-Hydroxy 45.8 ng/mL 30 - 100 12/12/2016 Vitamin D deficiency has been defined by the [place] [employer] and [employer] guideline as a level of serum 25-OH Vitamin D less than 20 ng/mL. The Endocrine Society further defines Vitamin D insufficiency as a level between 21 and 29 ng/mL and sufficiency as a level between 30 and 100 ng/mL. [facility] DIABETIC FOOT EXAM <p>Nicole La NP 11/15/20167:43 PM</p><p>Diabetic Foot Exam was performed at 11/15/2016 7:41 PM.Right foot </p><p>sensation is normal, right foot pulses are normal, right foot appearance </p><p>is normal.Left foot sensation is normal,left foot pulses are normal,</p><p>left foot appearance is normal. </p><p> </p><p> </p> Nicole La NP 11/15/20167:43 PM Diabetic Foot Exam was performed at 11/15/2016 7:41 PM.Right foot sensation is normal, right foot pulses are normal, right foot appearance is normal.Left foot sensation is normal,left foot pulses are normal, left foot appearance is normal. 11/15/2016 [facility] ACTIN (SM) AB Actin Smooth Mus 19 Reference range: 0 to 19 Unit: Units (note) Negative 0 - 19 Weak positive 20 - 30 Moderate to strong positive >30 Actin Antibodies are found in 52-85% of patients with autoimmune hepatitis or chronic active hepatitis and in 22% of patients with primary biliary cirrhosis. 10/26/2016 [facility] MITOCHON (M2) AB Mitochon (M2) Ab 13.8 Reference range: 0.0 to 20.0 Unit: Units (note) Negative0.0 - 20.0 Wpyjabcmn66.1 - 24.9 Positive >24.9 Mitochondrial (M2) Antibodies are found in 90-96% of patients with primary biliary cirrhosis. 10/26/2016 [facility] AFP, TUMOR MARKER AFP Tumor Mrk (Historical) 4.0 ng/mL 0 - 8 10/26/2016 [facility] JULIAN JULIAN Screen Negative NEG 10/26/2016 [facility] CBC/DIFF WBC 6.0 K/uL 4.5 - 11 10/26/2016 [facility] CBC/DIFF RBC 4.43 M/uL 4.20 - 5.40 10/26/2016 [facility] CBC/DIFF Hemoglobin 13.5 g/dL 12 - 16 10/26/2016 [facility] CBC/DIFF Hematocrit 39.6 % 37 - 47 10/26/2016 [facility] CBC/DIFF MCV 89 fL 82 - 92 10/26/2016 [facility] CBC/DIFF MCH 30.5 pg 27 - 32 10/26/2016 [facility] CBC/DIFF MCHC 34.1 g/dL 32 - 36 10/26/2016 [facility] CBC/DIFF RDW 41.3 fL 36.4 - 46.3 10/26/2016 [facility] CBC/DIFF Platelet 114 K/uL 150 - 400 10/26/2016 Low [facility] CBC/DIFF Mean Platelet Volume 11.5 fL 9.4 - 12.4 10/26/2016 [facility] CBC/DIFF Percent NRBC 0.0 10/26/2016 [facility] CBC/DIFF Absolute NRBC 0.00 10/26/2016 [facility] CBC/DIFF Neutrophil 52.2 % 34 - 70 10/26/2016 [facility] CBC/DIFF Lymphocyte 36.6 % 20 - 50 10/26/2016 [facility] CBC/DIFF Monocyte 8.0 % 5 - 12 10/26/2016 [facility] CBC/DIFF Eosinophil 2.5 % 0.7 - 5 10/26/2016 [facility] CBC/DIFF Basophil 0.5 % 0.1 - 1.2 10/26/2016 [facility] CBC/DIFF Pct Immat Gran 0.2 0.0 - 0.5 10/26/2016 [facility] CBC/DIFF Neutrophil, Abs 3.13 K/uL 1.56 - 6.13 10/26/2016 [facility] CBC/DIFF Lymphocyte, Abs 2.19 K/uL 1.18 - 3.74 10/26/2016 [facility] CBC/DIFF Monocyte, Abs 0.48 K/uL 0.24 - 0.36 10/26/2016 High [facility] CBC/DIFF Eosinophil, Abs 0.15 K/uL 0.04 - 0.36 10/26/2016 [facility] CBC/DIFF Basophil, Abs 0.03 K/uL 0.01 - 0.08 10/26/2016 [facility] CBC/DIFF Absol Immat Gran 0.01 K/uL 0 - 0.03 10/26/2016 [facility] CBC/DIFF Lab Interpretation Abnormal 10/26/2016 [facility] IGG IgG 1530.0 mg/dL 700 - 1600 10/26/2016 [facility] LIVER PROFILE T Protein 7.6 g/dL 6.4 - 8.2 10/26/2016 [facility] LIVER PROFILE Albumin 3.9 g/dL 3.4 - 5 10/26/2016 [facility] LIVER PROFILE T Bilirubin 0.2 mg/dL 0.2 - 1 10/26/2016 [facility] LIVER PROFILE Alk Phos 52 U/L 45 - 117 10/26/2016 [facility] LIVER PROFILE AST 26 U/L 15 - 37 10/26/2016 [facility] LIVER PROFILE ALT 28 U/L 12 - 78 10/26/2016 [facility] LIVER PROFILE D Bilirubin 0.1 mg/dL 0 - 0.2 10/26/2016 [facility] PT/INR PT 14.3 Seconds 11.8 - 15.0 10/26/2016 [facility] PT/INR INR 1.1 SUGGESTED THERAPEUTIC RANGES: INR 2.0-3.0 for MODERATE INTENSITY ANTICOAGULATION INR 2.5-3.5 for HIGH INTENSITY ANTICOAGULATION 10/26/2016 [facility] URINE AND STOOL UA Nitrite Negative (06/04/15 8:44 AM) Negative 06/04/2015 [facility] URINE AND STOOL UA Urobilinogen 1.0 EU/dL 0.1 - 1.0 06/04/2015 [facility] URINE AND STOOL UA Leuk Est Negative (06/04/15 8:44 AM) Negative 06/04/2015 [facility] URINE AND STOOL UA Blood Large *ABN* (06/04/15 8:44 AM) Negative 06/04/2015 [facility] URINE AND STOOL UA Bacteria Occasional /HPF None Seen /HPF 06/04/2015 [facility] URINE AND STOOL UA RBC >100 /HPF 0 - 2 06/04/2015 [facility] URINE AND STOOL UA WBC 0-2 /HPF 0 - 5 06/04/2015 [facility] URINE AND STOOL UA Ketones Negative *NA* (06/04/15 8:44 AM) Negative 06/04/2015 [facility] URINE AND STOOL UA Bili Small *ABN* (06/04/15 8:44 AM) Negative 06/04/2015 [facility] URINE AND STOOL UA Color Red *ABN* (06/04/15 8:44 AM) Yellow 06/04/2015 [facility] URINE AND STOOL UA Turbidity Cloudy *ABN* (06/04/15 8:44 AM) Clear 06/04/2015 [facility] URINE AND STOOL UA Spec Grav 1.020 <=1.030 06/04/2015 [facility] URINE AND STOOL UA Protein 100 mg/dL Negative mg/dL 06/04/2015 [facility] URINE AND STOOL UA pH 6.0 5.0 - 8.0 06/04/2015 [facility] URINE AND STOOL UA Glucose Negative (06/04/15 8:44 AM) Negative 06/04/2015 [facility] URINE AND STOOL UA Sq Epi Occasional /LPF Few /LPF 06/04/2015 [facility] CHEM PANEL eGFR 90 mL/min/1.73m2 06/04/2015 Result Comment: The eGFR is calculated using the [...] from the National Kidney Disease Education Program (NKDEP) which additionally recommends that when the eGFR is used in patients with extremes of body mass index for purposes of drug dosing, the eGFR should be multiplied by the estimated BMI. [facility] CHEM PANEL CO2 26 meq/L 24 - 32 06/04/2015 [facility] CHEM PANEL Calcium Lvl 7.9 mg/dL 8.5 - 10.5 06/04/2015 [facility] CHEM PANEL Total Protein 7.4 g/dL 6.4 - 8.4 06/04/2015 [facility] CHEM PANEL ALT 101 unit/L 0 - 65 06/04/2015 [facility] CHEM PANEL Albumin Lvl 3.3 g/dL 3.5 - 5.0 06/04/2015 [facility] CHEM PANEL Chloride Lvl 104 meq/L 95 - 109 06/04/2015 [facility] CHEM PANEL Sodium Lvl 138 meq/L 135 - 145 06/04/2015 [facility] CHEM PANEL Creatinine Lvl 0.78 mg/dL 0.50 - 1.40 06/04/2015 [facility] CHEM PANEL AST 91 unit/L 0 - 37 06/04/2015 [facility] CHEM PANEL Alk Phos 67 unit/L 39 - 136 06/04/2015 [facility] CHEM PANEL Bili Total 0.3 mg/dL 0.2 - 1.3 06/04/2015 [facility] CHEM PANEL Potassium Lvl 3.6 meq/L 3.5 - 5.1 06/04/2015 [facility] CHEM PANEL BUN 12 mg/dL 7 - 22 06/04/2015 [facility] CHEM PANEL Glucose Lvl 124 mg/dL 70 - 99 06/04/2015 [facility] CHEM PANEL A/G Ratio 0.8 0.7 - 1.6 06/04/2015 [facility] CHEM PANEL B/C Ratio 15 6 - 25 06/04/2015 [facility] CHEM PANEL AGAP 11.6 meq/L 10.0 - 20.0 06/04/2015 [facility] CHEM PANEL Globulin 4.1 g/dL 2.0 - 4.0 06/04/2015 [facility] ENDOCRINOLOGY hCG Tot null 06/04/2015 [facility] HEMATOLOGY RDW 14.1 % 11.5 - 14.5 06/04/2015 [facility] HEMATOLOGY MCHC 33.1 g/dL 32.0 - 36.0 06/04/2015 [facility] HEMATOLOGY Hct 32.5 % 36.0 - 48.0 06/04/2015 [facility] HEMATOLOGY MCV 86.9 fL 80.0 - 98.0 06/04/2015 [facility] HEMATOLOGY MCH 28.8 pg 27.0 - 31.0 06/04/2015 [facility] HEMATOLOGY Hgb 10.8 g/dL 12.0 - 16.0 06/04/2015 [facility] HEMATOLOGY RBC 3.73 M/CMM 4.20 - 5.40 06/04/2015 [facility] HEMATOLOGY WBC 4.9 K/CMM 3.7 - 10.4 06/04/2015 [facility] HEMATOLOGY MPV 7.9 fL 7.4 - 10.4 06/04/2015 [facility] HEMATOLOGY Platelet 96 K/CMM 133 - 450 06/04/2015 [facility] HEMATOLOGY PT 14.2 s 12.0 - 14.7 06/04/2015 [facility] HEMATOLOGY PTT 27.4 s 22.9 - 35.8 06/04/2015 [facility] HEMATOLOGY INR 1.07 0.85 - 1.17 06/04/2015 [facility] HEMATOLOGY Segs 55.4 % 45.0 - 75.0 06/04/2015 [facility] HEMATOLOGY Lymphocytes # 1.6 K/CMM 1.0 - 5.5 06/04/2015 [facility] HEMATOLOGY Segs-Bands # 2.7 K/CMM 1.5 - 8.1 06/04/2015 [facility] HEMATOLOGY Eosinophils # 0.1 K/CMM 0.0 - 0.5 06/04/2015 [facility] HEMATOLOGY Monocytes # 0.4 K/CMM 0.0 - 0.8 06/04/2015 [facility] HEMATOLOGY Eosinophils 2.0 % 0.0 - 4.0 06/04/2015 [facility] HEMATOLOGY Monocytes 8.6 % 2.0 - 12.0 06/04/2015 [facility] HEMATOLOGY Basophils 0.9 % 0.0 - 1.0 06/04/2015 [facility] HEMATOLOGY Lymphocytes 33.1 % 20.0 - 40.0 06/04/2015 [facility] Pelvis w Transvag and Pelvis Doppler US Pelvis w Transvag and Pelvis Doppler US Study: Pelvis w Transvag and Pelvis Doppler US ; Age: 50 years y/o Female Clinical Indication: Abdominal pain, acute; Comparison: 03/05/2015 Technique: Grayscale, color and Doppler transabdominal and transvaginal imaging of the pelvis was performed with standard technique. FINDINGS: TRANSABDOMINAL PELVIC ULTRASOUND: UTERUS: The transabdominal pelvic ultrasound evaluation of the uterus shows that the neutral position uterus measures 9.6 x 5.2 x 5.5 cm in size. The uterus is heterogeneous. The endometrium appears thickened, measuring 1.3 cm in width. No definite uterine masses identified. OVARIES: The ovaries are not well seen on the transabdominal portion of the exam, related to bowel gas in the pelvis. OTHER FINDINGS: The transabdominal sonographic images show no free fluid in the pelvic cul-de-sac. TRANSVAGINAL PELVIC ULTRASOUND: UTERUS: The transvaginal study shows an area of decreased echogenicity in the anterior aspect of the body of the uterus, slightly to the left of midline. This nodule measures 1.9 x 1.1 x 1.1 cm and may represent a small intramural leiomyoma.The endometrial stripe measures 2.3 mm in thickness. OVARIES: Right ovary measures 4.6 x 2.4 x 2.6 cm. There is a cyst in the right ovary measuring 2.8 x 2.1 x 2.1 cm. Left ovary measures 3.1 x 1.0 x 1.9 cm. There is normal ovarian contour and morphology. There are no adnexal masses. The Doppler images show normal bilateral ovarian arterial and venous blood flow. OTHER FINDINGS: The transvaginal sonographic images show no free fluid in the pelvic cul-de-sac. IMPRESSION: 1. Thickened appearance of the endometrium may represent retained products of hemorrhage. Endometrial hyperplasia not excluded. 2. Simple cyst in the right ovary as described. 3. Suspect small intramural leiomyoma of the left anterior myometrium. SL: [id number] 06/04/2015 - - Read by: Humphrey Joseph MD Dictated Date/time: 06/04/15 10:18 Electronically Signed by: Humphrey Joseph MD 06/04/15 11:12 FINAL REPORT [facility] Pelvis Transvaginal US Pelvis Transvaginal US EXAM: US PELVIS TRANSVAGINAL DATE: 03/05/2015 at 0524 hours. INDICATION: Vaginal bleeding. ADDITIONAL INFORMATION: Beta-hCG negative. COMPARISON: None available. TECHNIQUE: Multiplanar grayscale and color Doppler ultrasound images of the pelvis were obtained by transvaginal examination postvoid. FINDINGS: Limited visualization of the urinary bladder is unremarkable. The uterus is anteverted and measures 8.2 x 4.8 x 5.6 cm. A uterine fibroid is seen measuring 1.4 x 1.2 x 1.2 cm. Nabothian cysts are identified at the cervix. Endometrial thickness is 15.0 mm. The endometrium demonstrates a heterogeneous echogenicity with small cystic structures within. Cystic hyperplasia cannot be excluded.. The right ovary is not imaged. The left ovary is 5.2 x 4.2 by 5.1 cm. No adnexal abnormalities. A left ovarian cyst is seen with internal debris that measures 4.1 x 4.0 x 3.9 cm. Free fluid is seen within the dependent portions of the left adnexa with associated debris. IMPRESSION: 1. Left ovarian hemorrhagic cyst. 2. Heterogeneous endometrium with cystic structures may represent cystic hyperplasia. No definite endometrial vascularity noted Recommend reevaluation with ultrasound after 3 menstrual cycles. Appearances are unchanged, and correlation with biopsy may be required to exclude endometrial malignancy 3. Small free fluid in the left adnexa with debris. 4. A uterine fibroid. 03/05/2015 - - This report was dictated by a Area Field Manager/Fellow. I have personally reviewed the images as well as the Resident's interpretation and agree with the findings. Read by: Errol Davalos MD Resident: Errol Davalos MD Dictated Date/time: 03/05/15 09:14 Electronically Signed by: Javed Samuel MD 03/05/15 13:17 FINAL REPORT [facility] Vital Signs Vital Sign Value Date Comments Source Respitory Rate 18 01/03/2018 [facility] Height 170.2 cm 01/03/2018 [facility] Systolic (mm Hg) 116 10/18/2017 [facility] Diastolic (mm Hg) 61 10/18/2017 [facility] Heart Rate 62 10/18/2017 [facility] Temperature Oral (F) 36.61 Ela 10/18/2017 [facility] Respitory Rate 18 10/18/2017 [facility] Height 170.2 cm 10/18/2017 [facility] Weight 76.658 10/18/2017 [facility] BMI Calculated 26.47 10/18/2017 [facility] Systolic (mm Hg) 126 06/04/2015 [facility] Diastolic (mm Hg) 73 06/04/2015 [facility] Temperature Oral (F) 97.6 F 06/04/2015 [facility] Respitory Rate 20 06/04/2015 [facility] Heart Rate 67 06/04/2015 [facility] Respitory Rate 20 06/04/2015 [facility] Heart Rate 75 06/04/2015 [facility] Systolic (mm Hg) 118 06/04/2015 [facility] Diastolic (mm Hg) 71 06/04/2015 [facility] Heart Rate 74 06/04/2015 [facility] Systolic (mm Hg) 150 06/04/2015 [facility] Diastolic (mm Hg) 80 06/04/2015 [facility] Temperature Oral (F) 98.8 F 06/04/2015 [facility] Respitory Rate 16 06/04/2015 [facility] Weight 76.818 06/04/2015 [facility] Height 167.64 cm 06/04/2015 [facility] BMI Calculated 27.33 06/04/2015 [facility] Encounters Location Location Details Encounter Type Encounter Number Reason For Visit Attending Provider ADM Date DC Date Status Source [facility] [id number] Abbe Sheth 06/04/2015 06/04/2015 [facility] Ref[facility] [id number] Type 2 diabetes mellitus without complication, with long-term current use of insulin Luc Redd MD 10/24/2016 [facility] Visit [id number] Bipolar 2 disorder Anxiety Jr Thomas MD 10/26/2016 10/26/2016 [facility] [id number] 11/03/2016 [facility] Ref[facility] [id number] Essential hypertension Luc Redd MD 11/05/2016 [facility] [id number] 11/08/2016 [facility] Visit [id number] Uncontrolled type 2 diabetes mellitus with complication, with long-term current use of insulin Screen for colon cancer Need for vqsqypxmph-twqzcsi-unzvqwdnp (Tdap) vaccine Need for pneumococcal vaccination Wears glasses Myalgia Essential hypertension Nicole La NP 11/15/2016 11/15/2016 [facility] Orders Only [id number] Essential hypertension Luc Redd MD 11/16/2016 [facility] Refill [id number] Bipolar 2 disorder 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 11/30/2016 [facility] Visit [id number] 11/30/2016 [facility] [place] [facility] [place] [id number] 12/01/2016 [facility] Visit [id number] Bipolar 2 disorder Anxiety Sophy Tryo MD 12/28/2016 12/28/2016 [facility] Telephone [id number] Mary Cuadra RN 12/29/2016 [facility] Telephone [id number] Mary Cuadra RN 12/29/2016 [facility] Refill [id number] Type 2 diabetes mellitus without complication, with long-term current use of insulin Luc Redd MD 01/23/2017 [facility] [id number] 01/24/2017 [facility] [id number] 01/25/2017 [facility] Visit [id number] Hepatic cirrhosis due to chronic hepatitis C infection Screen for colon cancer Type 2 diabetes mellitus without complication, with long-term current use of insulin Encounter for screening mammogram for malignant neoplasm of breast Cramping affecting , antepartum Leg cramp 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 01/25/2017 01/25/2017 [facility] [id number] 01/26/2017 [facility] [id number] 01/30/2017 [facility] [id number] 01/30/2017 [facility] [id number] 02/22/2017 [facility] Visit [id number] Bipolar 2 disorder Anxiety Insomnia, unspecified type Sophy Troy MD 02/22/2017 02/22/2017 [facility] Ref[facility] [id number] Insomnia, unspecified type Mary Cuadra RN 06/01/2017 [facility] [id number] 06/02/2017 [facility] [id number] 06/13/2017 [facility] Visit [id number] 06/13/2017 [facility] Visit [id number] Insomnia, unspecified type Anxiety Bipolar 2 disorder Luc Redd MD 07/26/2017 07/26/2017 [facility] Visit [id number] Insomnia, unspecified type Anxiety Bipolar 2 disorder Sophy Troy MD 10/18/2017 10/18/2017 [facility] Procedures Procedure Code Date Perfomer Comments Source
--- OUTSIDE RECORDS SUMMARY | 2018-01-17 16:40 | XMS REPORT ---
Author Author [facility] Address Unknown Phone Unavailable Care Team Providers Care Fastener Technologist Name Role Phone Unavailable Unavailable Problems This patient has no known problems. Allergies, Adverse Reactions, Alerts This patient has no known allergies or adverse reactions. Medications This patient has no known medications. Encounters Start Date/Time End Date/Time Encounter Type Admission Type Attending [facility] Facility Care Department Encounter ID 2018-03-07 00:00:00 2018-03-07 00:00:00 Outpatient [facility] [id number] 2018-01-03 15:00:48 2018-01-03 15:00:48 Outpatient [facility] [id number] 2017-10-18 14:47:38 2017-10-18 14:47:38 Outpatient [facility] [id number] 2017-07-26 15:05:14 2017-07-26 15:05:14 Outpatient [facility] [id number] 2017-05-03 00:00:00 2017-05-03 00:00:00 Outpatient [facility] [id number] 2017-03-01 00:00:00 2017-03-01 00:00:00 Outpatient [facility] [id number] 2017-02-22 14:56:10 2017-02-22 14:56:10 Outpatient [facility] [id number] 2017-02-22 00:00:00 2017-02-22 00:00:00 Outpatient [facility] [id number] 2017-01-25 14:56:50 2017-01-25 14:56:50 Outpatient [facility] [id number] 2016-12-28 14:50:15 2016-12-28 14:50:15 Outpatient [facility] [id number] 2016-12-12 09:08:36 2016-12-12 09:08:36 Outpatient [facility] [id number] 2016-11-24 00:00:00 2016-11-24 00:00:00 Outpatient [facility] [id number] 2016-11-15 15:01:47 2016-11-15 15:01:47 Outpatient [facility] [id number] 2016-11-08 00:00:00 2016-11-08 00:00:00 Outpatient [facility] [id number] 2016-10-26 14:46:29 2016-10-26 14:46:29 Outpatient [facility] [id number] 2016-10-26 14:29:25 2016-10-26 14:29:25 Outpatient [facility] [id number] 2016-08-29 13:25:06 2016-08-29 13:25:06 Outpatient [facility] [id number] 2016-08-29 00:00:00 2016-08-29 00:00:00 Outpatient [facility] [id number] 2016-08-16 14:48:37 2016-08-16 14:48:37 Outpatient [facility] [id number]
--- OUTSIDE RECORDS SUMMARY | 2018-01-17 16:40 | XMS REPORT | Clinical Summary ---
Author Author [facility] Organization [facility] Address Unknown Phone Unavailable Care Team Providers Care Paper Pattern Inspector Name Role Phone Luc Redd MD PCP [...] Type 2 diabetes mellitus with hyperglycemia, unspecified adjunct faculty for medical terminology insulin use status traMADol (ULTRAM) 50 mg [...] by mouth at 30 tablet 2 10/19/19 Active mg tabletIndications: bedtime nightly. 18 Insomnia, unspecified type clonazePAM (KLONOPIN) 0.5 Take 1 tablet by mouth 30 tablet 2 10/19/19 Active mg tabletIndications: daily as needed for 18 Anxiety Anxiety. lithium carbonate Take 1 capsule by mouth 2 60 capsule 2 10/19/19 Active (ESKALITH) 600 mg times daily (with [...] - hot flashes and mood swings 01/25/2017 [place] use 01/25/2017 S/P hysterectomy 07/21/2015 Epigastric pain 07/06/2015 Vagina bleeding 07/05/2015 Dysfunctional uterine bleeding 06/13/2015 Abnormal ultrasound of kidney- repeat CT- Punctate bilateral nonobstructing 01/02/2015 renal calculi.- has appt with pcp jan 2015-letter 2 sent Elevated LFTs 12/03/2014 Elevated TSH 12/03/2014 Hepatitis C virus infection-Hepatitis C- treated 2002-; 2007-11 - at 12/03/2014 [facility] ; had hep A and B vaccines ; low platelets ; elevated AFP DM (diabetes mellitus), type 2, uncontrolled 12/03/2014 Hepatitis C- treated 2002-; 2007-11 - at [facility] ; had hep A and B vaccines 11/19/2014 ; low platelets ; History of alcohol abuse- in remission since 201211/19/2014 Anxiety state, unspecified 09/04/2014 Bipolar 2 disorder 11/06/2013 DM (diabetes mellitus); not on lalo - allergy ?; 01/23/2013 Depression 01/22/2013 Anxiety 01/22/2013 Uterine leiomyoma Hypertension Encounters Date Type Specialty Care Team Description 10/18/2017 Office Visit Psychiatry Sophy Troy MD [...] with long-term current use of insulin after 01/02/2017 Immunizations Name Dates Previously Given Next Due [...] 10/18/2017 2:51 PM CDT Respiratory Rate 18 01/03/2018 3:05 PM CDT Oxygen Saturation - - Inhaled Oxygen - - Concentration Weight 76.7 kg (169 lb) 10/18/2017 2:51 PM CDT Height 170.2 cm (5' 7") 01/03/2018 3:05 PM CDT Body Mass Index 26.47 10/18/2017 2:51 PM CDT Plan of Treatment Date Type Specialty Care Team Description 01/03/2018 Office Visit Psychiatry [place] [address] [phone] Health Maintenance Due Date Last Done Comments [...] Healthy Molly Alfonso Results Not on fileafter 01/02/2017
[2018-01-17] MEDS ORDERED: MORPHINE SULFATE INJ 4 MG/ML INJ IV STA (16:43)
[2018-01-17] MEDS ORDERED: SODIUM CHLORIDE 0.9% 1000ML 1,000 ML IV STA (16:43)
[2018-01-17] MEDS ORDERED: ENALAPRILAT IV INJ 1.25 MG/ML VIAL IV STA (16:43)
[2018-01-17] MEDS ORDERED: FAMOTIDINE 20 MG/2 ML VIAL IV ONE (16:45)
[2018-01-17] MEDS ORDERED: KETOROLAC TROMETHAMINE 30 MG/ML VIAL IV ONE (16:45)
[2018-01-17] MEDS ORDERED: PROMETHAZINE 12.5MG/ NACL 0.9% 12.5 MG/50 ML BAG IV ONE (16:45)
[2018-01-17] MEDS ORDERED: HYDRALAZINE HCL 20 MG/ML VIAL IV STA (16:47)
[2018-01-17 17:00] LABS: BASOPHILS % 0.4 % (0.0-1.0); EOSINOPHILS # (AUTO) 0.1 (0.0-0.4); EOSINOPHILS % 1.5 % (0.0-6.0); HEMATOCRIT 42.9 % (34.2-44.1); HEMOGLOBIN 14.9 g/dL (12.0-16.0); LYMPHOCYTES # (AUTO) 2.1 (1.0-3.2); LYMPHOCYTES % 25.6 % (18.0-39.1); MEAN CORPUSCULAR HEMOGLOBIN 29.9 pg (28-32); MEAN CORPUSCULAR HGB CONC 34.7 g/dL (31-35); MONOCYTES # (AUTO) 0.7 (0.2-0.8); MONOCYTES % 8.8 % (4.4-11.3); NEUTROPHILS # (AUTO) 5.1 (2.1-6.9); NEUTROPHILS % 63.3 % (38.7-80.0); PLATELET COUNT 136 x10e3/uL (140-360); RED BLOOD COUNT 4.99 x10e6/uL (3.6-5.1); RED CELL DISTRIBUTION WIDTH 13.4 % (11.7-14.4)
[2018-01-17] MEDS ORDERED: NITROGLYCERIN 2% OINT 1 GM PKT TOP ONE (17:00)
[2018-01-17] MEDS ORDERED: CEFTRIAXONE SOD 1 GM VIAL IV NR (17:00)
[2018-01-17 17:44] LABS: BILIRUBIN,URINE NEGATIVE (NEGATIVE); CLARITY,URINE CLEAR (CLEAR); COLOR,URINE YELLOW (YELLOW); KETONES,URINE NEGATIVE (NEGATIVE); LEUKOCYTE ESTERASE ,URINE NEGATIVE (NEGATIVE); NITRITE,URINE NEGATIVE (NEGATIVE); PROTEIN,URINE DIPSTICK NEGATIVE (NEGATIVE); URINE UROBILINOGEN 0.2 mg/dL (0.2 - 1)
[2018-01-17 17:55] LABS: BACTERIA,URINE MANY /HPF; EPITHELIAL CELLS,URINE MODERATE /LPF; RENAL EPITHELIAL CELLS,URINE FEW
[2018-01-17 17:58] LABS: ALANINE AMINOTRANSFERASE 19 IU/L (0-55); ALKALINE PHOSPHATASE 41 IU/L (40-150); ANION GAP 13.3 mmol/L (8-16); BLOOD UREA NITROGEN 22 mg/dL (7-26); BUN/CREATININE RATIO 26 (6-25); CALCIUM 9.9 mg/dL (8.4-10.2); CARBON DIOXIDE 28 mmol/L (22-29); CHLORIDE 98 mmol/L (98-107); CREATININE, SERUM 0.85 mg/dL (0.57-1.11); EST GLOMERULAR FILTRATION RATE > 60 ML/MIN (60-); GLUCOSE 170 mg/dL (74-118); POTASSIUM 3.3 mmol/L (3.5-5.1); SODIUM 136 mmol/L (136-145)
--- NOTE | 2018-01-17 18:29 | Diagnostic Imaging Report ---
EXAM: CT Abdomen and Pelvis WITHOUT contrast INDICATION: Left flank pain. Kidney stones. COMPARISON: None. TECHNIQUE: Abdomen and pelvis were scanned utilizing a multidetector helical scanner from the lung base to the pubic symphysis without administration of IV contrast. Absence of intravenous contrast decreases sensitivity for detection of focal lesions and vascular pathology. Coronal and sagittal reformations were obtained. Routine protocol was performed. IV CONTRAST: None. ORAL CONTRAST: Water RADIATION DOSE: Total DLP: 392.05 mGy*cm Estimated effective dose: (DLP x 0.015 x size factor) mSv COMPLICATIONS: None FINDINGS: LINES and TUBES: None. LOWER THORAX: Unremarkable HEPATOBILIARY: No focal hepatic lesions. Mildly nodular hepatic contour. No biliary ductal dilation. GALLBLADDER: No radio-opaque stones or sludge. No wall thickening. SPLEEN: Borderline size measuring 12.3 cm in craniocaudal dimension. PANCREAS: No focal masses or ductal dilatation. ADRENALS: No adrenal nodules KIDNEYS/URETERS: No hydronephrosis. No cystic or solid mass lesions. Punctate nonobstructing calculus in the anterior upper pole of the left kidney on image 52 series 3. Punctate calculus in the interpolar region of the of the left kidney on coronal image 59 Punctate calculus in the lower pole of the left kidney on image 72 series 3. Punctate calculus in the interpolar region of the right kidney on image 54. GI TRACT: No abnormal distention, wall thickening, or evidence of bowel obstruction. Hyperdensity within the distal appendix suggestive of small appendicoliths. Otherwise appendix is unremarkable. A few scattered sigmoid diverticula without CT evidence of diverticulitis. PELVIC ORGANS/BLADDER: The uterus appears surgically absent. LYMPH NODES: No lymphadenopathy. VESSELS: There is mild atherosclerotic disease in the aorta and major arterial branches. PERITONEUM / RETROPERITONEUM: No free air or fluid. BONES: Small thoracolumbar Schmorl nodes. SOFT TISSUES: Subcutaneous edema in the anterior abdominal wall. IMPRESSION: 1. Bilateral punctate renal calculi, left more numerous than right. No hydronephrosis. No obstructive uropathy. 2. Mild colonic diverticulosis without diverticulitis. 3. Mild nodular hepatic contour. Signed by: Dr. Antwan Trinidad M.D. on 01/17/2018 6:26 PM
[2018-01-17] MEDS ORDERED: HYDROCHLOROTHIA25 MG PO (18:55)
[2018-01-17] MEDS ORDERED: LEVEMIR100 UNIT/1 (18:55)
[2018-01-17] MEDS ORDERED: TRAZODONE HCL100 MG PO (18:55)
[2018-01-17] MEDS ORDERED: NOVOLIN R100 UNIT/1 (18:55)
[2018-01-17] MEDS ORDERED: METOPROLOL TART50 MG PO (18:55)
[2018-01-17] MEDS ORDERED: SODIUM CHLORIDE 0.9% 1000ML 1,000 ML IV SCH (19:06)
[2018-01-17] MEDS ORDERED: ENALAPRILAT IV INJ 1.25 MG/ML VIAL IV PRN (19:15)
[2018-01-17] MEDS ORDERED: ZOLPIDEM TARTRATE 5 MG TAB PO PRN (19:15)
[2018-01-17] MEDS ORDERED: LACTULOSE SYRUP 20 GM/30 ML UDC PO PRN (19:15)
[2018-01-17] MEDS ORDERED: DIPHENHYDRAMINE HCL INJ 50 MG/ML VIAL IV PRN (19:15)
[2018-01-17] MEDS ORDERED: IBUPROFEN 200 MG TAB PO PRN (19:15)
[2018-01-17] MEDS ORDERED: ACETAMINOPHEN 325 MG TAB PO PRN (19:15)
[2018-01-17] MEDS ORDERED: HYDROCODONE/APAP 7.5MG-325MG 1 EA TAB PO PRN (19:15)
[2018-01-17] MEDS ORDERED: ONDANSETRON HCL INJ 2 MG/ML VIAL IV PRN (19:15)
[2018-01-17] MEDS ORDERED: IBUPROFEN 400 MG TAB PO PRN (19:30)
[2018-01-17] MEDS ORDERED: DEXTROSE 50% SYRINGE 50 ML IV PRN (19:30)
[2018-01-17] MEDS ORDERED: ZOLPIDEM TARTRATE 10 MG TAB PO PRN (19:30)
[2018-01-17 19:54] VITALS: BP 159/90
[2018-01-17] MEDS ORDERED: INSULIN REGULAR, HUMAN 100 UNIT/1 ML 3ML VIAL SQ SCH (21:00)
[2018-01-18] MEDS ORDERED: FAMOTIDINE 20 MG/2 ML VIAL IV SCH (09:00)
== END 2018-01-17 20:02 | disposition home or self-care (01) ==
LOC: ER 16:35
DX: R10.32 Left lower quadrant pain (principal); R11.0 Nausea; M54.5 Low back pain; N20.0 Calculus of kidney; K57.30 Diverticulosis of large intestine without perforation or abscess without bleeding
CPT/HCPCS: 36415; 74176; 80053; 81001; 82948; 85025; 87086; 99284; J0360; J0696; J1885; J2270; J2550; J7030